=== PATIENT | female | born 1975 | race Caucasian/White ===

== ENCOUNTER 2023-05-02 14:13 | Outpatient (CLI) | payer BC, SELFPAY | END 2023-05-02 14:14 | disposition home or self-care (01) | PROVIDERS: Visit Provider Otolaryngology | DX: R49.0 Dysphonia (principal) | CPT/HCPCS: 84443; 86039; 86431; 86618 ==

== ENCOUNTER 2023-05-08 07:32 | Outpatient (CLI) | payer BC, SELFPAY ==
--- NOTE | 2023-05-08 08:00 | CRLHL7_ITS ---
For Patients: As a result of the Century Cures Act, medical imaging exams and procedure reports are released immediately into your electronic medical record. You may view this report before your referring provider. If you have questions, please contact your health care provider. INDICATION: DYSPHONIA, PAIN IN NECK COMPARISON: none TECHNIQUE: A CT volumetric acquisition was performed of the neck during intravenous infusion of 89 cc Isovue 370 nonionic intravenous contrast. Please note that all CT scans at this facility use dose modulation, iterative reconstruction, and/or weight-based dosing when appropriate to reduce radiation dose to as low as reasonably achievable. FINDINGS: The CT images demonstrate normal aeration of the mastoid air cells and middle ear cavities. The paranasal sinuses are clear. Curvature of the nasal septum. The parotid and submandibular glands are of normal size and have uniform enhancement. The oropharynx appears normal. Well-defined thin walled air-filled structure arises from the larynx measuring 1.4 cm. Normal piriform sinuses and epiglottis. Normal tonsils. Degenerative changes in the midcervical spine. No fracture. Lung apices are clear. Subcentimeter right thyroid lobe nodules. There is no evidence of lymphadenopathy within the anterior and posterior cervical triangles or within the supraclavicular region. 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 No adenopathy. Please note that all CT scans at this facility use dose modulation, iterative reconstruction, and/or weight-based dosing when appropriate to reduce radiation dose to as low as reasonably achievable. Dictated by Ernesto Lynn MD @ 05/08/2023 9:34:46 AM (Electronically Signed)
== END 2023-05-08 07:33 | disposition home or self-care (01) ==
PROVIDERS: Visit Provider Otolaryngology
DX: R49.0 Dysphonia (principal); M54.2 Cervicalgia
CPT/HCPCS: 70491; Q9967

== ENCOUNTER 2023-05-14 10:25 | Outpatient (CLI) | payer BC, SELFPAY | END 2023-05-14 10:26 | disposition home or self-care (01) | LOC: LKVREF 10:26 | PROVIDERS: Visit Provider Otolaryngology | DX: M54.2 Cervicalgia (principal) | CPT/HCPCS: 86140 ==